=== PATIENT | female | born 1985 | race Two or more races ===

== ENCOUNTER → 2016-09-21 | Outpatient (CLI) | payer OTHER ==
--- NOTE | ~2016-09-21 | US98 ---
[facility] A Service of [facility] RADIOLOGY TEXT RESULTS PATIENT: KENDALL SMITH LOCATION: [facility] : 89 UNIT #: [id number] AGE: [address]: LEONEL CHOWDHURY APRN SEX: F ORDER DR: [id number] [facility] [address] [place], [place] [address] [id number] O MR#: [id number] Acc #: [id number] NAME: KENDALL SMITH : 1985 SEX: F STUDY DATE/TIME: 09/21/2016 10:23 UNIT: [facility] ROOM: STUDY DESCRIPTION: US Pelvic Non-OB Complete Attending Physician: Milagros Chowdhury M.D. Referring Physician: Milagros Chowdhury M.D. Ordering Physician: Milagros Chowdhury M.D. Primary Care Physician: Rah Pope M.D. MEDICAL IMAGING REPORT This report is preliminary unless electronic signature is present EXAM Pelvic ultrasound INDICATION Lower pelvic pain, right greater than left that started 2 weeks ago. TECHNIQUE Soto-scale color Doppler and spectral Doppler waveform analysis was performed through the pelvis both transabdominally and transvaginally. FINDINGS Uterus is homogeneous in echotexture the endometrium measures up to 1.1 cm in thickness which is within normal limits for a 31-year-old woman. No focal uterine lesions are seen. No free fluid is seen within the pelvis, right ovary contains normal appearing follicles as is the left ovary, no suspicious adnexal masses are seen. Normal color-Doppler flow is seen within both ovaries. IMPRESSION Normal pelvic ultrasound. Dictated by... Lary Gastelum M.D. THIS IS AN ELECTRONICALLY VERIFIED REPORT Lary Gastelum M.D. at 09/22/2016 12:41 PM AFF/rnr TD: 09/21/2016 22:28 JOB #: [id number] MEDICAL IMAGING REPORT Page 1 of 1 COPY
== END | disposition home or self-care (01) ==
LOC: CWCC 09:20
DX: R10.2 Pelvic and perineal pain (principal)
CPT/HCPCS: 76830; 76856